=== PATIENT | female | born 1955 | race Caucasian/White ===

== ENCOUNTER → 2023-08-06 11:44 | Outpatient (BNVA) | payer MEDICARE, BC, SELFPAY | PROVIDERS: Visit Provider Nurse Practitioner Family | DX: S39.012A Strain of muscle, fascia and tendon of lower back, initial encounter (principal); M54.6 Pain in thoracic spine; M54.9 Dorsalgia, unspecified; Z23 Encounter for immunization; N39.0 Urinary tract infection, site not specified; X58.XXXA Exposure to other specified factors, initial encounter | CPT/HCPCS: 80053; 85651; 86140 ==

== ENCOUNTER 2023-08-24 08:34 | Emergency (ER) | payer MEDICARE, BC, SELFPAY ==
[2023-08-24 08:57] VITALS: BP 152/89; PULSE 134; RESP 14; TEMP 36.6; O2SAT 100; BMI 19.2
--- NOTE | 2023-08-24 09:52 | ECG_ITS ---
[facility] Test Date: 2023-08-24 Pat Name: Courtney Hooper Department: Room: Gender: Female Sheet Catcher: : 1955 Requested By: Dave Raygoza Order Number: [id number] Seda MD: Veronica Michaels M.D. Measurements Intervals [place] Rate: 121 P: 65 RI: 119 QRS: 58 QRSD: 70 T: 54 QT: 268 QTc: 381 Interpretive Statements SINUS TACHYCARDIA WITH SHORT RI INTERVAL ABNORMAL RHYTHM ECG Compared to ECG 08/24/2023 11:34:58 No significant changes Electronically Signed On 08-24-2023 19:52:59 IT HELP DESK MANAGER by Veronica Michaels M.D. [id number]
--- NOTE | 2023-08-24 09:52 | XR_ITS ---
WS: [id number] XR chest 1V portable [id number] REASON FOR EXAM: cp FINDINGS: Mild tortuosity of the thoracic aorta. Normal heart size. Calcified granulomas disease bilaterally. No active pulmonary parenchymal or pleural disease. Mild changes of degenerative spondylosis in the mid and lower thoracic spine. IMPRESSION: No acute abnormality.
[2023-08-24 10:20] LABS: Basophils % 0.3 %; Hematocrit 37.4 % (36-47); Lymphocytes # 1.1 10^3/uL (0.8-4.8); Lymphocytes % 7.3 %; Mean Corpuscular HGB Conc 32.9 g/dL (30-55); Mean Corpuscular Hemoglobin 28.5 pg (27-33); Mean Corpuscular Volume 86.6 fl (85-98); Mean Platelet Volume 8.5 fL (7.4-10.4); Monocytes # 1.6 10^3/uL (0.2-0.9); Monocytes % 11.4 %; Neutrophils # 11.53 10^3/uL (1.8-7.7); Neutrophils % 79.8 %; Nucleated Red Blood Cells % 0 %; Platelet Count 531 10^3/cmm (157-399); Red Blood Count 4.32 10^6/uL (3.85-5.65); Red Cell Distribution Width 16.5 % (12.1-15.1); White Blood Count 14.44 10^3/uL (3.29-11.43)
[2023-08-24 10:40] LABS: Troponin(5th) Baseline 16 ng/L (0-10)
[2023-08-24 10:52] LABS: Alanine Aminotransferase 67 U/L (0-33); Albumin Level 3.4 g/dL (3.5-5.2); Alkaline Phosphatase 900 U/L (35-105); Anion Gap 16.1 (5-19); Aspartate Amino Transferase 105 U/L (0-32); Blood Urea Nitrogen 14 mg/dL (8-23); Calcium 10.2 mg/dL (8.5-10.5); Carbon Dioxide 27 mmol/L (22-29); Chloride 93 mmol/L (98-107); Glomerular Filtration Rate 99.4 mL/min (90-130); Glucose 114 mg/dL (65-115); Lipase 36 U/L (13-60); NT Pro B Type Natriuretic Pept 684 pg/mL (0-125); Osmolality Calculated 275 mOsm/kg (285-295); Potassium 4.1 mmol/L (3.5-5.1); Sodium 132 mmol/L (136-145); Total Bilirubin 1.9 mg/dL (0.15-1.2); Total Protein 7.4 g/dL (6.6-8.7)
--- NOTE | 2023-08-24 11:34 | ECG_ITS ---
[facility] Test Date: 2023-08-24 Pat Name: Courtney Hooper Department: Room: Gender: Female Sleeve Machine Tender: : 1955 Requested By: Dave Raygoza Order Number: [id number] Seda MD: Veronica Michaels M.D. Measurements Intervals [place] Rate: 127 P: 58 NV: 116 QRS: 56 QRSD: 74 T: 48 QT: 266 QTc: 388 Interpretive Statements SINUS TACHYCARDIA WITH SHORT [place] INTERVAL ABNORMAL RHYTHM ECG No previous ECG available for comparison Electronically Signed On 08-24-2023 20:15:07 MANAGER ENVIRONMENTAL HEALTH AND SAFETY by Veronica Michaels M.D. [id number]
--- NOTE | 2023-08-24 11:38 | US_ITS ---
WS: [id number] ULTRASOUND ABDOMEN LIMITED CLINICAL INFORMATION: Abdominal pain elevated liver enzymes COMPARISON: None. FINDINGS: Liver Size: Enlarged Craniocaudal length: 19.7 cm. Echogenicity: Coarse Surface nodularity: None. Mass (size and location): Numerous hepatic lesions suspicious for diffuse metastatic disease measurin g up to 2.3 cm. Bile ducts Intrahepatic ducts: Normal. Common bile duct diameter: 0.3 cm. Gallbladder Gallbladder is obscured by shadowing which may be due to adjacent bowel, or shadowing cholelithiasis. This could be further evaluated with CT. Pancreas Normal as visualized. Right kidney: Normal. Hydronephrosis: None. Size: 8.6 cm x 5.8 cm x 4.9 cm. Abdominal aorta and IVC Visualized portions are normal. Ascites: None. IMPRESSION: 1. Enlarged heterogeneous liver with multiple hepatic lesions suspicious for diffuse metastatic dise ase. Recommend further evaluation with contrast-enhanced CT abdomen pelvis. 2. Gallbladder is obscured by shadowing which may be due to adjacent bowel gas or cholelithiasis. Th is could also be further evaluated with CT. 3. No hydronephrosis in the RIGHT kidney.
--- NOTE | 2023-08-24 11:59 | ED_ITS ---
HPI - Abdominal Pain 2 General: Chief Complaint: Abdominal Pain Stated Complaint: upper abd pain Time Seen by Provider: 08/24/23 11:27 Source: patient Mode of arrival: ambulatory History of Present Illness: 60-year-old female presents to the [facility] room with complaint of right upper quadrant abdominal pain radiating to her back and into her shoulder. Initially her symptoms began at the beginning of the year she was seen in August 06 at that time was thought related to musculoskeletal issues she did have elevated liver enzymes including an alk phos and transaminases are elevated but her bilirubin was normal at that time, She also had a normal white count. Urine was unremarkable did not show any leukocyte esterase or nitrates. She was treated with Cipro 500 twice daily for UTI and given Naprosyn. She said both of these seem to upset her stomach so she stopped taking them. She has noticed that unless she eats a very bland diet anything she eats seems to worsen her symptoms. She has not had any hematochezia melena hematemesis or coffee-ground emesis she denies any dysuria urgency or frequency or hematuria. MD elicited complaint: abdominal pain Onset (ago): week(s) Pain Consistency: constant Location: Epigastric and RUQ Severity: moderate Quality: cramping Exacerbating factors: eating Relieving factors: nothing Associated Symptoms: Reports anorexia, bloating, GI cramping, nausea and poor appetite; Denies belching, change in bowel habits, change in stool character, chills, coffee ground emesis, constipation, diarrhea, dyspepsia, dysuria, excessive flatus, fever(s), heartburn, hematochezia, hematuria, hematemesis, fecal incontinence, loose stools, melena, syncope and vomiting Review of Systems 2 Const: Reports: fatigue and malaise; Denies: fever(s) or chills Card: Denies: chest pain, palpitations, edema, swelling of feet/ankles or syncope Resp: Denies: dyspnea GI: Reports: abdominal pain, nausea, early satiety, bloating and GI cramping; Denies: vomiting, hematemesis, coffee ground emesis, heartburn, diarrhea, constipation, belching, excessive flatus, fecal incontinence, change in bowel habits, change in stool character, hematochezia or melena : Denies: dysuria, urinary frequency, urinary urgency or hematuria Musc: Denies: neck pain or back pain Skin/Breast: Denies: rash Physical Exam 2 Const: GENERAL APPEARANCE: cooperative ORIENTATION/CONSCIOUSNESS: Yes awake, Yes oriented to person, Yes oriented to place and Yes oriented to time HENMT: COMMON NORMALS: normocephalic, atraumatic and hearing grossly normal bilaterally HEAD & SCALP: normocephalic and atraumatic Resp: COMMON NORMALS: normal respiratory effort, No retractions, No use of accessory muscles and clear to auscultation bilaterally AUSCULTATION: clear to auscultation bilaterally Cardio: COMMON NORMALS: regular rate, regular rhythm and No murmurs present (Cardio) RATE: regular rate RHYTHM: regular rhythm GI: AUSCULTATION: Yes normoactive bowel sounds PALPATION: Yes Tenderness to palpation present (GI), No Guarding due to palpation present (GI) and Yes Hepatomegaly present OTHER: Hepatomegaly with nodular liver palpable through the abdominal wall extends into the right lower quadrant on the right side of the abdomen and extends at least 1 handbreadth below the costal margin on the left. Extremity: COMMON NORMALS: normal to inspection, capillary refill normal, no clubbing, cyanosis or edema, no calf tenderness and no pedal edema Neuro: SENSORIUM/ORIENTATION: Yes oriented to person, Yes oriented to place and Yes oriented to time Skin: COMMON NORMALS: no rashes or lesions noted GENERAL SKIN EXAM: no rashes or lesions noted Course 2 Vital Signs: Vital signs: Vital Signs Temperature 97.8 F 08/24/23 08:57 Pulse Rate 124 H 08/24/23 14:08 Respiratory Rate 14 08/24/23 08:57 Blood Pressure 147/91 08/24/23 14:08 Pulse Oximetry 96 08/24/23 14:08 Oxygen Delivery Me thod Room Air 08/24/23 08:57 MDM - Abdominal Pain Medical Decision Making Significantly abnormal liver with the appearance of metastatic disease. There is also mass in the rectum measures 6 x 4 x 6 cm with surrounding lymphadenopathy suspicious as a primary. There are small nodules at the lung base compatible with metastatic disease and some ascites there is compression of the inferior vena cava from the significant hepatomegaly which is causing some body wall anasarca. There is a large right inguinal lymph node noted as well. Reviewed findings with the patient discussed with the this is extremely suspicious for cancer but to confirm would need biopsy will make arrangements for lymph node or hepatic biopsy discussed with Dr. Faust he felt either the right inguinal lymph node or a liver biopsy would be the best approaches. Afterwards patient should be referred to oncology for treatment options. During the discussion of the findings patient mentioned that her brother in his 50s of colon cancer. Differential Diagnosis Likely abdominal pain, acute appendicitis, calculus of kidney, constipation, diverticulitis, gastroenteritis and small bowel obstruction Medical Records I reviewed the patient's medical records. Lab Data I reviewed the patient's lab results. 08/24/23 10:00 08/24/23 10:00 Labs/Radiology: Laboratory Results WBC 14.44 10^3/uL (3.29-11.43) H 08/24/23 10:00 RBC 4.32 10^6/uL (3.85-5.65) 08/24/23 10:00 Hgb 12.30 g/dL (11.27-16.99) 08/24/23 10:00 Hct 37.4 % (36-47) 08/24/23 10:00 MCV 86.6 fl (85-98) 08/24/23 10:00 MCH 28.5 pg (27-33) 08/24/23 10:00 MCHC 32.9 g/dL (30-55) 08/24/23 10:00 RDW 16.5 % (12.1-15.1) H 08/24/23 10:00 Plt Count 531 10^3/cmm (157-399) H 08/24/23 10:00 MPV 8.5 fL (7.4-10.4) 08/24/23 10:00 Neut % (Auto) 79.8 % 08/24/23 10:00 Lymph % (Auto) 7.3 % 08/24/23 10:00 [place] % (Auto) 11.4 % 08/24/23 10:00 Eos % (Auto) 0.0 % 08/24/23 10:00 Baso % (Auto) 0.3 % 08/24/23 10:00 Neut # (Auto) 11.53 10^3/uL (1.8-7.7) H 08/24/23 10:00 Lymph # (Auto) 1.1 10^3/uL (0.8-4.8) 08/24/23 10:00 Roosevelt # (Auto) 1.6 10^3/uL (0.2-0.9) H 08/24/23 10:00 Eos # (Auto) 0.0 10^3/uL (0.0-0.8) 08/24/23 10:00 Baso # (Auto) 0.0 10^3/uL (0.0-0.1) 08/24/23 10:00 Nucleated RBC % (auto) 0 % 08/24/23 10:00 Nucleated RBCs # 0.0 /100WBC 08/24/23 10:00 Sodium 132 mmol/L (136-145) L 08/24/23 10:00 Potassium 4.1 mmol/L (3.5-5.1) 08/24/23 10:00 Chloride 93 mmol/L (98-107) L 08/24/23 10:00 Carbon Dioxide 27 mmol/L (22-29) 08/24/23 10:00 Anion Gap 16.1 (5-19) 08/24/23 10:00 BUN 14 mg/dL (8-23) 08/24/23 10:00 Creatinine 0.6 mg/dL (0.5-0.9) 08/24/23 10:00 GFR Calculation 99.4 mL/min (90-130) 08/24/23 10:00 Glucose 114 mg/dL (65-115) 08/24/23 10:00 Calculated Osmolality 275 mOsm/kg (285-295) L 08/24/23 10:00 Calcium 10.2 mg/dL (8.5-10.5) 08/24/23 10:00 Total Bilirubin 1.9 mg/dL (0.15-1.2) H 08/24/23 10:00 AST 105 U/L (0-32) H 08/24/23 10:00 ALT 67 U/L (0-33) H 08/24/23 10:00 Alkaline Phosphatase 900 U/L (35-105) H 08/24/23 10:00 Troponin T Baseline 16 ng/L (0-10) H 08/24/23 10:00 Troponin T 120 Minute 14.72 ng/L (0-10) H 08/24/23 11:48 Delta Troponin T -1.28 ABS# (0-10) L 08/24/23 11:48 NT-Pro-B Natriuret Pep 684 pg/mL (0-125) H 08/24/23 10:00 Total Protein 7.4 g/dL (6.6-8.7) 08/24/23 10:00 Albumin 3.4 g/dL (3.5-5.2) L 08/24/23 10:00 Globulin 4.0 g/dL (1.3-4.6) 08/24/23 10:00 Lipase 36 U/L (13-60) 08/24/23 10:00 All radiology interpretation(s) finalized by discharge Discharge Plan Discharge Patient Disposition: Home Clinical Impression: Malignant neoplasm of unknown origin Condition: Stable Prescriptions: New hydrocodone-acetaminophen 5-325 mg tablet 1 tab PO Q6H PRN (Reason: pain) Qty: 20 0RF ondansetron HCl 4 mg tablet 4 mg PO Q6H PRN (Reason: nausea and vomiting) Qty: 20 0RF Ativan 2 mg tablet 2 mg PO Q6H PRN (Reason: anxiety/nausea and vomitting) Qty: 20 0RF No Action naproxen [EC-Naprosyn] 500 mg tablet,delayed release (DR/EC) 500 mg PO Q12H PRN (Reason: pain) 30 Days Qty: 60 3RF Acidophilus Probiotic 100 million cell-10 mg Capsule 1 cap PO DAILY Discharge Orders: Discharge ED (Routine); Ordered 08/24/23 Ordered By: Marc Slade Discharge Diet: Advance as tolerated Discharge Activity: Increase activity as tolerated Patient Instructions: Opioid Safety, Pain Management Activity Restrictions/Additional Instructions: Thank you for choosing [facility] for your healthcare needs today. Please realize this is an emergency room and that we are providing you with a medical screening exam and this may not be complete and all inclusive of all the testing and or work up that you may need to determine your ailment or severity of your illness. It is very important that you follow up as instructed or that you return to the Emergency Department should you have concerns or if your condition changes or worsens in any way. You are seen today for abdominal discomfort. On the CT of your abdomen there was extensive suspicious lesions highly concerning for cancer. Since the source of the cancer is not known we recommend that you have a biopsy of discussed with the radiologist they recommend either a liver biopsy or a right groin lymph node biopsy. This will be arranged for you and central scheduling will call with the date and time. You are given hydrocodone to use for pain, Ativan that you can use for anxiety sleep or nausea and vomiting if needed. You can also use ondansetron for nausea or vomiting. After you have had the biopsy completed you will have a consultation with the oncology clinic. Coding Level of Care Code ED Test Equipment Mechanic for Erasto Cervantes
[2023-08-24 12:23] LABS: Troponin 5 2HR 14.72 ng/L (0-10)
--- NOTE | 2023-08-24 12:32 | CT_ITS ---
WS: [id number] CT ABDOMEN PELVIS TECHNIQUE: Contrast-enhanced CT of the abdomen and pelvis with coronal and sagittal reformatted image s. CLINICAL INFORMATION: abd pain COMPARISON: None. DLP: 315.[address] scans at [facility] use at least one of these dose optimization techniques: automated e xposure control; mA and/or kV adjustment per patient size (includes targeted exams where dose is matc hed to clinical indication); or iterative reconstruction. FINDINGS: Numerous small subcentimeter pulmonary nodules in the lung bases, RIGHT middle lobe, and abutting the surface of the diaphragm suspicious for metastatic disease. Hepatomegaly with innumerable diffuse hepatic metastasis throughout both hepatic lobes more confluent involving the LEFT hepatic lobe. Bulky metastatic disease within the liver. Portal vein and splenic vein are patent. Gallbladder demonstrates large bulky gallbladder calculus measuring 1.8 cm in the ga llbladder fundus. This corresponds to the shadowing on the recent ultrasound. No gallbladder wall thi ckening or pericholecystic fluid. Diffuse body wall anasarca. Small amount of free fluid in the pericolic gutters and about the liver. Small amount of free fluid in the pelvis. Bulky heterogeneously enhancing mass in the presacral space appears to be exophytic from the adjacent rectum. This measures approximately 6.3 x 4.1 x 6.1 cm. Ma ss appears centrally necrotic with heterogeneous enhancement. Uterus appears atrophic. No visualized adnexal masses. Normal spleen. LEFT adrenal gland is normal. RIGHT adrenal gland not visualized. Normal renal parench ymal enhancement. No hydronephrosis. Visualized pancreas appears normal. Normal caliber abdominal aor ta. Compression of the IVC at the jesse hepatis due to hepatomegaly and bulky hepatic metastasis. RIG HT inguinal pathologic lymph node measuring 1.7 cm Induration in the peritoneum may be due to edema but early peritoneal carcinomatosis not excluded. Normal caliber abdominal aorta. Enlarged lymph nodes in the presacral space surrounding the bulky exo phytic mass. A few air-fluid levels in the small bowel. No evidence of high-grade small or large marta l obstruction. Small indeterminate sclerotic rim lesion RIGHT ilium. Bone scan could be utilized to evaluate for [place] metastasis. IMPRESSION: 1. Diffuse innumerable bulky hepatic metastasis worse in the LEFT hepatic lobe. 2. Bulky exophytic mass in the presacral space appears to originate from the rectum suspicious for p rimary site of disease. This measures 6.3 x 4.1 x 6.1 cm with bulky surrounding satellite lymphadenop athy. 3. Numerous small nodules in the lung bases and along the surface of the diaphragm compatible with m etastatic disease. 4. Small amount of perihepatic and pelvic ascites. Compression of the IVC at the jesse hepatis due t o bulky metastasis and hepatomegaly. 5. Diffuse body wall anasarca. 6. Induration in the mesentery may be due to edema but early peritoneal carcinomatosis not excluded. 7. Notable RIGHT inguinal pathologic lymph node measuring 1.7 cm. 8. Indeterminate small sclerotic rim lesion RIGHT ilium. Bone scan could be utilized to evaluate for bony metastasis. 9. Bulky 1.8 cm calculus in the gallbladder fundus Notified Marc Slade DO at 08/24/2023 1:33 PM.
[2023-08-24 12:40] LABS: Troponin 5 2HR Delta -1.28 ABS# (0-10)
[2023-08-24] MEDS: piperacillin-tazobactam 3.375 GM in sodium chloride 0.9% (plus) 50 ML IV (12:57)
[2023-08-24] MEDS: sodium chloride 0.9% 1,000 ML 999 ML IV (13:02)
[2023-08-24] MEDS: iohexol 350 mg/mL 500 mL Btl (per mL) IV (13:07)
[2023-08-24 14:08] VITALS: BP 147/91; PULSE 124; O2SAT 96
== END 2023-08-24 14:00 | disposition home or self-care (01) ==
PROVIDERS: Emergency Medicine; Emergency Provider Family Medicine
DX: C80.1 Malignant (primary) neoplasm, unspecified (principal); R16.0 Hepatomegaly, not elsewhere classified
CPT/HCPCS: 36415; 71045; 74177; 76705; 80053; 83690; 83880; 84484; 85025; 87040; 93005; 96365; 99285; J2543; J7030; Q9967

== ENCOUNTER → 2023-09-09 10:44 | Outpatient (BNVA) | payer MEDICARE, BC, SELFPAY | PROVIDERS: PCP Nurse Practitioner Family; Referring Provider Nurse Practitioner Family; Visit Provider Surgery | DX: R93.5 Abnormal findings on diagnostic imaging of other abdominal regions, including retroperitoneum (principal); Z80.0 Family history of malignant neoplasm of digestive organs; R59.1 Generalized enlarged lymph nodes; K62.89 Other specified diseases of anus and rectum; K21.9 Gastro-esophageal reflux disease without esophagitis; K80.20 Calculus of gallbladder without cholecystitis without obstruction | CPT/HCPCS: 99204 ==

== ENCOUNTER 2023-09-10 10:39 | Outpatient (CLI) | payer MEDICARE, BC, SELFPAY ==
[2023-09-10 11:07] LABS: Basophils % 0.1 %; Eosinophils % 0.1 %; Hematocrit 31.7 % (36-47); Lymphocytes # 1.1 10^3/uL (0.8-4.8); Lymphocytes % 6.2 %; Mean Corpuscular HGB Conc 30.6 g/dL (30-55); Mean Corpuscular Hemoglobin 29.7 pg (27-33); Mean Corpuscular Volume 96.9 fl (85-98); Mean Platelet Volume 8.9 fL (7.4-10.4); Monocytes % 11.9 %; Neutrophils # 13.67 10^3/uL (1.8-7.7); Neutrophils % 80.5 %; Nucleated Red Blood Cells % 0 %; Platelet Count 502 10^3/cmm (157-399); Red Blood Count 3.27 10^6/uL (3.85-5.65); Red Cell Distribution Width 23.3 % (12.1-15.1); White Blood Count 16.99 10^3/uL (3.29-11.43)
[2023-09-10 11:20] LABS: Add Urine Microscopic? YES; Bilirubin Urine 2+ (Negative); Blood Urine Neg (Negative); Glucose Urine UA Norm (Normal); Ketones Urine 1+ (Negative); Leukocyte Esterase Urine Trace (Negative); Nitrate Urine Negative (Negative); Protein Urine Trace (Negative); Urine Appearance SL Hazy (CLEAR); Urine Color Yellow (Yellow); Urobilinogen Urine 4 mg/dL (Negative); pH Urine 5 (5-7)
[2023-09-10 11:21] LABS: Add Urine Culture? No; Bacteria Urine 3+ /hpf; RBC Urine 0-4 /hpf (0-2); Squamous Epithelial Cell Urine 0-4 /hpf (0-5)
[2023-09-10 12:47] LABS: Anion Gap 16.2 (5-19); Blood Urea Nitrogen 14 mg/dL (8-23); Calcium 9.8 mg/dL (8.5-10.5); Carbon Dioxide 26 mmol/L (22-29); Chloride 87 mmol/L (98-107); Glomerular Filtration Rate 158.7 mL/min (90-130); Glucose 123 mg/dL (65-115); Osmolality Calculated 262 mOsm/kg (285-295); Potassium 4.2 mmol/L (3.5-5.1); Sodium 125 mmol/L (136-145)
== END 2023-09-10 10:40 | disposition home or self-care (01) ==
LOC: LAB 10:40
PROVIDERS: PCP Nurse Practitioner Family; Visit Provider Surgery
DX: R59.1 Generalized enlarged lymph nodes (principal)
CPT/HCPCS: 80048; 81001; 85025

== ENCOUNTER 2023-09-13 10:09 | Day surgery (SDC) | payer MEDICARE, BC, SELFPAY ==
--- NOTE | 2023-09-10 10:28 | ECG_ITS ---
[facility] Test Date: 2023-09-10 Pat Name: Courtney Hooper Department: Room: Gender: Female Calculus Teacher: : 1955 Requested By: Franklyn Alvarado Order Number: [id number] Seda MD: Ventura Torrez M.D. Measurements Intervals [place] Rate: 121 P: 68 IL: 118 QRS: 42 QRSD: 85 T: 36 QT: 276 QTc: 392 Interpretive Statements SINUS TACHYCARDIA WITH SHORT [place] INTERVAL NONSPECIFIC T-WAVE ABNORMALITY Compared to ECG 08/24/2023 13:27:25 T-wave abnormality now present Electronically Signed On 09-11-2023 6:04:16 STOCK LIFTER by Ventura Torrez M.D. [id number]
--- NOTE | 2023-09-10 13:51 | ANES.PREANE2 ---
Pre-Anesthetic Assessment Height/Weight: Height 1.57 m Operation Date: 09/13/23 12:00 Proposed Procedures p 02462 inguinal lymph node incision R59.1(Not Applicable) - Dwight Casillas, DO Social No alcohol and No tobacco Exam alert, oriented x 3 and regular rate & rhythm Airway Submandibular: within normal limits Cervical ROM: within normal limits Mallampati: Class II Urinary Tract Infection Hepatic Liver Mets GI Gastroesophageal Reflux Disease Rectal Lesion Anesthetic Plan ASA status: 3 Anesthesia: MAC Medications/Allergies Home Medications Medication Instructions Recorded Confirmed Last Taken Type ondansetron HCl 4 mg tablet 4 mg PO Q6H PRN nausea and 08/24/23 09/10/23 Unknown Rx vomiting #20 tabs hydrocodone 5 mg-acetaminophen 325 1 tab PO Q6H PRN pain 30 days #120 09/01/23 09/10/23 09/10/23 Rx mg tablet tabs pantoprazole 40 mg tablet,delayed 40 mg PO BID 6 weeks #84 tabs 09/09/23 09/10/23 Unknown Rx release (Protonix) Allergies Allergy/AdvReac Type Severity Reaction Status Date / Time amoxicillin Allergy ADR-Vomitin Verified 09/10/23 10:13 g Data Anesthesia Cardiac Studies: No Data to Display
[2023-09-13] VITALS (8 sets, daily range): BP systolic 92–113; BP diastolic 59–85; PULSE 96–131; RESP 14–18; TEMP 36.3–36.7; O2SAT 96–100
[2023-09-13] MEDS: scopolamine 1.5 Patch 1 PATCH TRANSDERMA (11:15)
[2023-09-13] MEDS: sodium chloride 0.9% 1,000 ML 30 ML IV (11:16)
[2023-09-13] MEDS: HYDROmorphone 1 mg/mL INJ 1 mL 0.5 MG IVP (11:43)
[2023-09-13 11:48] LABS: Basophils % 0.1 %; Eosinophils % 0.1 %; Hematocrit 33.9 % (36-47); Lymphocytes # 1.2 10^3/uL (0.8-4.8); Lymphocytes % 6.5 %; Mean Corpuscular HGB Conc 30.4 g/dL (30-55); Mean Corpuscular Hemoglobin 30.2 pg (27-33); Mean Corpuscular Volume 99.4 fl (85-98); Mean Platelet Volume 9.6 fL (7.4-10.4); Monocytes # 2.2 10^3/uL (0.2-0.9); Monocytes % 12.2 %; Neutrophils # 14.35 10^3/uL (1.8-7.7); Neutrophils % 79.8 %; Nucleated Red Blood Cells % 0 %; Platelet Count 444 10^3/cmm (157-399); Red Blood Count 3.41 10^6/uL (3.85-5.65); Red Cell Distribution Width 22.9 % (12.1-15.1); White Blood Count 17.98 10^3/uL (3.29-11.43)
--- NOTE | 2023-09-13 11:48 | ANES.PAUD2 ---
Pre-Anesthetic Update Pre-Anesthetic Assessment: Date of Surgery/Procedure: 09/13/23 Proposed Procedure: Operation Date: 09/13/23 12:00 Proposed Procedures p 64483 inguinal lymph node incision R59.1(Not Applicable) - Dwight Casillas, DO Any changes to Pre-Anesthetic Assessment?: No Last Intake: Intake Last Liquid Date 09/12/23 Last Liquid Time 23:00 Last Solid Date 09/12/23 Last Solid Time 21:30 Vitals: Temperature 97.8 F 09/13/23 11:05 Temperature Source Temporal Artery S can 09/13/23 11:05 Pulse Rate 131 H 09/13/23 11:05 Pulse Rhythm Regular 09/13/23 11:01 Pulse Strength 4+ Bounding 09/13/23 11:01 Respiratory Rate 16 09/13/23 11:43 Respiratory Effort Spontaneous, Non- Labored 09/13/23 11:43 Respiratory Depth Normal 09/13/23 11:43 Respiratory Patter n Normal 09/13/23 11:43 Blood Pressure 113/85 09/13/23 11:05 Blood Pressure Bev n 94 09/13/23 11:05 Pulse Oximetry 96 09/13/23 11:43 Oxygen Delivery Me thod Room Air 09/13/23 11:05 Exam: Pre-Anes Outpt Exam: alert, oriented x 3, clear to auscultation bilaterally and regular rate & rhythm Cardiac Studies: No Data to Display
[2023-09-13 12:07] LABS: Alanine Aminotransferase 61 U/L (0-33); Albumin Level 2.9 g/dL (3.5-5.2); Alkaline Phosphatase 947 U/L (35-105); Blood Urea Nitrogen 16 mg/dL (8-23); Calcium 9.9 mg/dL (8.5-10.5); Carbon Dioxide 24 mmol/L (22-29); Chloride 87 mmol/L (98-107); Globulin 3.5 g/dL (1.3-4.6); Glomerular Filtration Rate 221.2 mL/min (90-130); Glucose 98 mg/dL (65-115); Osmolality Calculated 259 mOsm/kg (285-295); Sodium 124 mmol/L (136-145); Total Protein 6.4 g/dL (6.6-8.7)
[2023-09-13 12:11] LABS: Anion Gap 17.9 (5-19); Aspartate Amino Transferase 140 U/L (0-32); Potassium 4.9 mmol/L (3.5-5.1)
[2023-09-13 12:12] LABS: Total Bilirubin 8.3 mg/dL (0.15-1.2)
--- NOTE | 2023-09-13 12:27 | W.PM.OPSUD ---
Surgery/Procedure H&P Update DATE OF PROCEDURE: September 13, 2023 DATE H&P PERFORMED: 09/09/23 H&P UPDATE INFORMATION: I have reviewed H&P completed within last 30 days, I have examined patient prior to procedure and No changes to prior documentation PLANNED PROCEDURE: Operation Date: 09/13/23 12:00 Proposed Procedures p [id number] inguinal lymph node incision R59.1(Not Applicable) - Dwight Casillas DO
[2023-09-13] MEDS: ceFAZolin 2,000 MG in sodium chloride 0.9% (plus) 50 ML 100 MG IV (12:39)
[2023-09-13] MEDS: lidocaine-epi 2% PF 1:200,000 20 mL SDV XX (13:01)
--- NOTE | 2023-09-13 13:11 | PM.OP ---
Operative Report Date of procedure: September 13, 2023 Pre-op diagnosis: Lymphadenopathy Rectal mass Post-op diagnosis: same Procedure done: Excision of right inguinal lymph nodes Implants: Andres Specimens removed/disposition: Right inguinal lymph nodes-fresh for lymphoma protocol Surgeon: Dwight Casillas DO Anesthesia: General Estimated blood loss (mL): 20 Complications: None apparent Brief History: This is a very pleasant 68-year-old female who presented to my office with bilateral inguinal lymphadenopathy. Imaging showed a rectal mass and large likely metastases in her liver. She had not yet had a tissue diagnosis. Right inguinal lymph node excision was indicated. The risk and benefits were explained and documented. Procedure: Patient was wheeled operative room placed on the OR table in the supine position. The right groin was inspected prepped and draped usual sterile fashion. A time was performed. All present were in agreement. 2% lidocaine with epinephrine was used to anesthetize the area over the lymphadenopathy of the right groin. A 15 blade scalpel was then used to make a 2 cm transverse incision over the lymphadenopathy. Electrocautery was used to dissect down through the fascia and large puri lymph nodes were encountered. Electrocautery was used to carve out a couple of lymph nodes. Hemostasis was achieved electrocautery. Andres was placed into the wound bed. The incision was closed with 3-0 Vicryl in an interrupted fashion at the dermis and 4-0 Monocryl in a subcuticular running fashion. Dermabond was applied. Lymph nodes were sent to pathology fresh-lymphoma protocol.
[2023-09-13] MEDS: HYDROcodone-acetaminophen 7.5-325 mg Tablet 1 TAB PO (14:10)
--- NOTE | 2023-09-13 16:17 | ANE.PACU2 ---
Inpatient post-anesthesia follow up: Airway intact: Yes Vital signs: Temperature 97.4 F Pulse Rate 113 Respiratory Rate 18 Blood Pressure 105/62 Pulse Oximetry 99 Oxygen Delivery Me thod Room Air Oxygen Flow Rate 6 Fraction of Inspir ed Oxygen Hydration adequate: Yes Nausea and vomiting: No Pain level: 2 Mental status: Baseline
[2023-09-14 12:10] LABS: Lymphoma Profile (BBPL) See Report
[2023-09-20 12:19] LABS: Mismatch Repari Proteins-IHC See Report
== END 2023-09-13 14:45 | disposition home or self-care (01) ==
PROVIDERS: PCP Nurse Practitioner Family; Visit Provider Surgery
PROC: (CPT 38500; principal; 2023-09-13 12:00)
DX: R59.1 Generalized enlarged lymph nodes (principal); K21.9 Gastro-esophageal reflux disease without esophagitis
CPT/HCPCS: 38500; 80053; 85025; 87015; 87070; 87102; 87116; 87176; 87205; 87206; 87801; 88184; 88185; 88307; 88341; 88342; 93005; J0690; J1170; J2704; J3010; J7030

== ENCOUNTER → 2023-09-16 15:49 | Outpatient (BNVA) | payer MEDICARE, BC, SELFPAY | PROVIDERS: PCP Nurse Practitioner Family; Visit Provider Surgery | DX: K62.89 Other specified diseases of anus and rectum (principal); C78.7 Secondary malignant neoplasm of liver and intrahepatic bile duct | CPT/HCPCS: 99212 ==

== ENCOUNTER → 2023-09-23 16:48 | Outpatient (BNVA) | payer OTHER, SELFPAY | PROVIDERS: PCP Nurse Practitioner Family; Visit Provider Surgery | DX: C78.7 Secondary malignant neoplasm of liver and intrahepatic bile duct (principal); K62.89 Other specified diseases of anus and rectum; Z79.899 Other long term (current) drug therapy | CPT/HCPCS: 99212 ==